=== PATIENT | female | born 2000 | race Caucasian/White ===

== ENCOUNTER → 2024-08-23 | Outpatient (CLI) | payer BC ==
[2024-08-23 15:30] LABS: Albumin 4.6 g/dL (3.8-4.9); Anion Gap 11.70 mmol/L (4.00-12.00); BUN/Creat Ratio 10.57 Ratio (12.00-20.00); Blood Urea Nitrogen 7.4 mg/dL (9.0-27.0); Calcium 9.3 mg/dL (8.7-10.3); Carbon Dioxide 24.3 mmol/L (21.6-31.8); Chloride 107 mmol/L (96-109); Cholesterol 171.00 mg/dL (0.00-200.00); Globulin 2.1 g/dL (1.6-3.3); Glucose 96 mg/dL (70-110); HDL Cholesterol 48.10 mg/dL (40.00-60.00); LDL Cholesterol,Calculated 97.3 mg/dL (0.0-131.0); Potassium 4.4 mmol/L (3.5-5.5); Sodium 143 mmol/L (135-145); Total Protein 6.7 g/dL (6.2-8.2); Triglycerides 128.00 mg/dL (0.00-149.00); VLDL Calculation 25.60 mg/dL (5.00-40.00)
[2024-08-23 15:31] LABS: ALT 22 U/L (8-44); AST 24 U/L (13-35); Albumin/Globulin Ratio 2.19 Ratio (1.60-3.17); Alkaline Phosphatase 58 U/L (41-126); T4, Free (Free Thyroxine) 1.05 ng/dL (0.80-1.80)
[2024-08-23 15:35] LABS: Basophils # (A) 0.03 X 10*3/uL (0.00-0.10); Basophils % (A) 0.4 %; Eosinophils # (A) 0.06 X 10*3/uL (0.04-0.35); Eosinophils % (A) 0.8 %; HCT 42.2 % (37.2-46.3); HGB 14.1 g/dL (12.0-15.0); Immature Grans, Automated 0.40 %; Lymphocytes # (A) 1.79 X 10*3/uL (0.90-5.00); Lymphocytes % (A) 23.7 %; MCH 29.6 pg (27.0-32.0); MCHC 33.4 g/dL (32.0-37.0); MCV 88.5 FL (80.0-97.0); Monocytes # (A) 0.44 X 10*3/uL (0.20-1.00); Monocytes % (A) 5.8 %; NRBC Per 100 WBC 0 X 10*3/uL (0.00-0.01); Neutrophils # (A) 5.20 X 10*3/uL (1.80-7.70); Neutrophils % (A) 68.9 %; Platelet Count 357 X 10*3/uL (140-440); RBC 4.77 X 10*6/uL (4.10-5.20); RDW 11.8 % (11.5-14.5); WBC 7.55 X 10*3/uL (4.50-10.00)
== END | disposition home or self-care (01) ==
LOC: LABWHC1 10:43
PROVIDERS: ATTEND Family Medicine
DX: Z00.01 Encounter for general adult medical examination with abnormal findings (principal); E66.01 Morbid (severe) obesity due to excess calories
CPT/HCPCS: 36415; 80053; 80061; 83036; 83525; 84439; 84443; 85025